=== PATIENT | male | born 1970 ===

== ENCOUNTER 2022-01-23 22:49 | Emergency (ER) ==
[~2022-01-23] VITALS: Ht 182.9 cm; Wt 82.3 kg
[2022-01-23] MEDS ORDERED: vitamin d (23:45)
[2022-01-23] MEDS ORDERED: ETOD-173 PO (23:45)
[2022-01-23] MEDS ORDERED: LISI10TA22 PO (23:45)
[2022-01-23] MEDS ORDERED: TYLE650T38 PO (23:45)
[2022-01-23] MEDS ORDERED: DICL1GEL3 TOP (23:45)
[2022-01-23] MEDS ORDERED: OMEP-173 PO (23:45)
== END 2022-01-24 03:10 | disposition left against medical advice (07) ==
LOC: M ED 22:49
DX: Z53.21 Procedure and treatment not carried out due to patient leaving prior to being seen by health care provider (principal)